=== PATIENT | female | born 1945 | race Caucasian/White ===

== ENCOUNTER → 2019-03-21 | Outpatient (CLI) | payer MEDICARE ==
[~2019-03-21] MED LIST: AMLO5TAB4 PO; DONE5TAB7 PO; DULO60CA7 PO; LEVO25TA4 PO; MELO7.5T5 PO; PREG25CA PO; SERT100T32 PO
== END | disposition home or self-care (01) ==
LOC: STAR 09:53
PROVIDERS: ATTEND Obstetrics & Gynecology Female Pelvic Medicine and Reconstructive Surgery
DX: Z01.818 Encounter for other preprocedural examination (principal); N81.2 Incomplete uterovaginal prolapse; N39.3 Stress incontinence (female) (male)
CPT/HCPCS: 93005

== ENCOUNTER 2019-05-10 15:29 | Emergency (ER) | payer MEDICARE ==
[~2019-05-10] VITALS: Ht 167.6 cm; Wt 79.1 kg
[~2019-05-10 15:29] MED LIST changes: +AMLO-150 PO; +DONE5TAB52 PO; +DULO30CA2 PO; +LEVO125T5 PO; +MELO15TA24 PO; +PREG150C PO; +SOLI10TA2 PO; +ZOLP-413 PO
[2019-05-10 15:35] VITALS: BP 164/66
--- NOTE | 2019-05-10 17:00 | NUR ---
construction pit worker: Pt to ED room 04 from lobby at this time
--- NOTE | 2019-05-10 17:10 | NUR ---
PT CURRENTLY IN XRAY. FAMILY SITTING AT BEDSIDE.
--- NOTE | 2019-05-10 17:21 | NUR ---
PT'S DAUGHTER HELPED MOTHER TO THE BATHROOM VIA WC.
[2019-05-10] MEDS ORDERED: MORPHINE SULFATE 4 MG/ML, 1ML ONE (17:44)
[2019-05-10] MEDS ORDERED: DIAZEPAM 5 MG/ML, 2ML ONE (17:44)
[2019-05-10] MEDS ORDERED: KETOROLAC 30 MG/1 ML ONE (17:44)
[2019-05-10] MEDS ORDERED: MORPHINE SULFATE 4 MG/ML, 1ML IVPush PRN (18:00)
[2019-05-10] MEDS ORDERED: DIAZEPAM 5 MG TABLET PO ONE (18:00)
[2019-05-10] MEDS ORDERED: KETOROLAC 30 MG/1 ML IVPush ONE (18:00)
[2019-05-10] MEDS ORDERED: DIAZEPAM 5 MG/ML, 2ML IVPush ONE (18:30)
--- NOTE | 2019-05-10 18:33 | NUR ---
PT DISCHARGED HOME IN A STABLE CONDITION. PIV WAS REMOVED WITH TIP INTACT. DC INSTRUCTIONS WERE DISCUSSED WITH PT AND DAUGHTER. PT AND DAUGHTER VERBALIZED UNDERSTANDING. NO FURTHER QUESTIONS OR CONCERNS WERE EXPRESSD AT THAT TIME. PT TO BE WHEELED OUT TO DAUGHTER CAR VIA WC.
[2019-05-10] MEDS ORDERED: SODIUM CHLORIDE FLUSH 10ML SYR IVF ONE (19:00)
== END 2019-05-10 18:35 | disposition home or self-care (01) ==
LOC: ED 18:09
DX: G89.29 Other chronic pain (principal); M54.6 Pain in thoracic spine
CPT/HCPCS: 72072; 72125; 96374; 96375; 99284; J1885; J2270; J3360

== ENCOUNTER 2019-09-16 16:09 | Observation (INO) | payer MEDICARE ==
[~2019-09-16] VITALS: Ht 168.9 cm; Wt 75.8 kg
--- NOTE | 2019-09-16 17:10 | NUR ---
Pt has co of diarrhea since yesterday am, described at "coffee grounds". last episode of diarrhea 2 hours ago. pt has sob of w exertion, denies cp, no vomiting. episodes of nausea. pt not in resp distress. state "i feel weak and crappy for 2 weeks".
[2019-09-16] MEDS ORDERED: PANTOPRAZOLE 80 MG in SODIUM CHLORIDE 0.9% 50 ML IVPB ONE (18:00)
[2019-09-16] MEDS ORDERED: ONDANSETRON 2MG/ML, 2ML IVPush ONE (18:00)
[2019-09-16] MEDS ORDERED: SODIUM CHLORIDE FLUSH 10ML SYR IVF ONE (18:00)
[2019-09-16] MEDS ORDERED: PANTOPRAZOLE 80 MG in SODIUM CHLORIDE 0.9% 100 ML IV SCH (18:00)
[2019-09-16] MEDS ORDERED: ONDANSETRON 2MG/ML, 2ML ONE (18:18)
[2019-09-16] MEDS ORDERED: MORPHINE SULFATE 4 MG/ML, 1ML ONE ×2 (18:19→20:08)
[2019-09-16 18:28] LABS: BASOPHILS # (AUTO) 0.01 x10^3/uL (0-0.1); BASOPHILS % (AUTO) 0 % (0-1); EOSINOPHILS # (AUTO) 0.04 x10^3/uL (0-0.4); EOSINOPHILS % (AUTO) 1 % (1-7); LYMPHOCYTES # (AUTO) 1.28 x10^3/uL (1-3.4); LYMPHOCYTES % (AUTO) 31 % (22-44); MD NO; MEAN CORPUSCULAR HEMOGLOBIN 27.1 pg (27.0-34.8); MEAN CORPUSCULAR HGB CONC 32.9 g/dL (32.4-35.8); MEAN CORPUSCULAR VOLUME 82.2 fL (80-100); MEAN PLATELET VOLUME 8.2 fL (7.4-10.4); MONOCYTES # (AUTO) 0.28 x10^3/uL (0.2-0.8); MONOCYTES % (AUTO) 7 % (2-9); NEUTROPHILS # (AUTO) 2.56 x10^3/uL (1.8-6.8); NEUTROPHILS % (AUTO) 62 % (42-75); PLATELET COUNT 162 x10^3/uL (130-400); RED BLOOD COUNT 5.36 x10^6/uL (3.82-5.3); RED CELL DISTRIBUTION WIDTH 14.8 % (9.6-15.2)
[2019-09-16 18:32] LABS: INTERNATIONAL NORMALIZED RATIO 0.99 (0.93-1.1); PROTHROMBIN TIME 10.5 Seconds (9.6-11.5)
[2019-09-16 18:33] LABS: ALANINE AMINOTRANSFERASE 30 U/L (12-78); ALBUMIN 3.7 g/dL (3.4-5.0); ANION GAP 6 mmol/L (5-15); CALCIUM 9.3 mg/dL (8.5-10.1); CHLORIDE 112 mmol/L (98-107)
[2019-09-16 18:35] LABS: ALKALINE PHOSPHATASE 101 U/L (45-117); BILIRUBIN,TOTAL 0.5 mg/dL (0.2-1.0); TOTAL PROTEIN 7.1 g/dL (6.4-8.2)
[2019-09-16] MEDS: MORPHINE SULFATE 4 MG/ML, 1ML IVPush PRN ×2 (18:41→20:10)
--- NOTE | 2019-09-16 18:45 | NUR ---
medicated per orders.
--- NOTE | 2019-09-16 18:53 | NUR ---
report to gabby
--- NOTE | 2019-09-16 20:21 | NUR ---
Dr. Nichols spoke with patient. Admin Morphine per mar for back pain.
[2019-09-16] MEDS ORDERED: PANTOPRAZOLE 40 MG IV IVPush SCH (21:00)
[2019-09-16] MEDS ORDERED: MELO7.5T5 PO (21:05)
[2019-09-16] MEDS ORDERED: SERT25TA3 PO (21:05)
[2019-09-16] MEDS: DIPHENHYDRAMINE 25 MG CAPSULE PO PRN (22:56)
[2019-09-16] MEDS: morphine SULFATE 10 MG/ML, 1ML IVPush PRN (23:49)
[2019-09-16] MEDS: ONDANSETRON 2MG/ML, 2ML IVPush PRN (23:50)
[2019-09-17] VITALS (8 sets, daily range): BP systolic 125–196; BP diastolic 67–87
[2019-09-17] MEDS: morphine SULFATE 10 MG/ML, 1ML IVPush PRN ×4 (00:09→18:32)
[2019-09-17] MEDS: SODIUM CHLORIDE 0.9% 1,000 ML IV SCH ×2 (02:25→10:29)
[2019-09-17 06:08] LABS: ANION GAP 10 mmol/L (5-15); CALCIUM 8.8 mg/dL (8.5-10.1); CHLORIDE 113 mmol/L (98-107); CREATININE 0.87 mg/dL (0.55-1.02)
[2019-09-17] MEDS: PANTOPRAZOLE 40 MG IV IVPush SCH ×2 (06:08→18:31)
[2019-09-17 07:00] LABS: BASOPHILS # (AUTO) 0.02 x10^3/uL (0-0.1); BASOPHILS % (AUTO) 1 % (0-1); EOSINOPHILS # (AUTO) 0.03 x10^3/uL (0-0.4); EOSINOPHILS % (AUTO) 1 % (1-7); LYMPHOCYTES # (AUTO) 1.27 x10^3/uL (1-3.4); LYMPHOCYTES % (AUTO) 35 % (22-44); MD NO; MEAN CORPUSCULAR HEMOGLOBIN 27.1 pg (27.0-34.8); MEAN CORPUSCULAR HGB CONC 32.7 g/dL (32.4-35.8); MEAN CORPUSCULAR VOLUME 83.1 fL (80-100); MEAN PLATELET VOLUME 7.8 fL (7.4-10.4); MONOCYTES % (AUTO) 8 % (2-9); NEUTROPHILS # (AUTO) 2.05 x10^3/uL (1.8-6.8); NEUTROPHILS % (AUTO) 56 % (42-75); PLATELET COUNT 149 x10^3/uL (130-400); RED CELL DISTRIBUTION WIDTH 14.8 % (9.6-15.2)
[2019-09-17] MEDS: ONDANSETRON 2MG/ML, 2ML IVPush PRN ×2 (10:29→18:31)
[2019-09-17] MEDS ORDERED: hydrALAzine 20 MG/ML, 1ML IV ONE (11:00)
[2019-09-17] MEDS: ALUMINUM/MAG/SIMETHICONE 30 ML UDC PO PRN ×3 (11:16→21:21)
[2019-09-17] MEDS ORDERED: DIAZ5TAB4 PO (18:40)
[2019-09-17] MEDS ORDERED: DIAZEPAM 5 MG/ML, 2ML IV PRN (19:00)
[2019-09-17] MEDS ORDERED: LIDODERM 5% PATCH TD SCH (19:00)
[2019-09-17] MEDS ORDERED: DIAZEPAM 5 MG TABLET PO PRN (19:30)
[2019-09-17] MEDS ORDERED: hydrALAzine 20 MG/ML, 1ML IV PRN (21:00)
[2019-09-17] MEDS: DIPHENHYDRAMINE 25 MG CAPSULE PO PRN (22:05)
[2019-09-17] MEDS ORDERED: LORazepam 2 MG/ML, 1ML IVPush ONE (23:30)
[2019-09-18 01:40] VITALS: BP 158/79
[2019-09-18 04:52] LABS: CLOSTRIDIUM DIFFICILE ANTIGEN NEGATIVE; CLOSTRIDIUM DIFFICILE TOXIN NEGATIVE (Negative)
[2019-09-18 05:59] VITALS: BP 160/78
[2019-09-18] MEDS: PANTOPRAZOLE 40 MG IV IVPush SCH (06:00)
[2019-09-18] MEDS ORDERED: LEVOTHYROXINE 125 MCG TABLET PO SCH (06:00)
[2019-09-18] MEDS ORDERED: SODIUM CHLORIDE 0.9% 1,000 ML IV SCH (06:30)
[2019-09-18] MEDS ORDERED: LIDODERM REMOVE PATCH NOTE XX SCH (07:00)
[2019-09-18 07:06] VITALS: BP 156/79
[2019-09-18 07:13] LABS: BASOPHILS # (AUTO) 0.02 x10^3/uL (0-0.1); BASOPHILS % (AUTO) 0 % (0-1); EOSINOPHILS # (AUTO) 0.06 x10^3/uL (0-0.4); EOSINOPHILS % (AUTO) 1 % (1-7); LYMPHOCYTES % (AUTO) 29 % (22-44); MD NO; MEAN CORPUSCULAR HEMOGLOBIN 27.6 pg (27.0-34.8); MEAN CORPUSCULAR HGB CONC 33.1 g/dL (32.4-35.8); MEAN CORPUSCULAR VOLUME 83.4 fL (80-100); MEAN PLATELET VOLUME 7.5 fL (7.4-10.4); MONOCYTES # (AUTO) 0.37 x10^3/uL (0.2-0.8); MONOCYTES % (AUTO) 6 % (2-9); NEUTROPHILS # (AUTO) 3.71 x10^3/uL (1.8-6.8); NEUTROPHILS % (AUTO) 63 % (42-75); PLATELET COUNT 164 x10^3/uL (130-400); RED BLOOD COUNT 5.47 x10^6/uL (3.82-5.3); RED CELL DISTRIBUTION WIDTH 14.6 % (9.6-15.2)
[2019-09-18] MEDS ORDERED: CHLORHEXIDINE 15 ML UDC ONE (07:43)
[2019-09-18] MEDS ORDERED: PROPOFOL 10 MG/ML, 20ML ONE ×2 (07:54→08:33)
[2019-09-18] MEDS ORDERED: FENTANYL PF 100 MCG/2ML ONE (08:04)
[2019-09-18] MEDS ORDERED: ROCURONIUM 10MG/ML,5ML ONE (08:33)
[2019-09-18] MEDS ORDERED: DEXAMETHASONE 4 MG/ML, 1ML ONE (08:33)
[2019-09-18] MEDS ORDERED: GLYCOPYRROLATE 0.2MG/1ML, 5ML ONE (08:33)
[2019-09-18] MEDS ORDERED: ONDANSETRON 2MG/ML, 2ML ONE (08:33)
[2019-09-18] MEDS ORDERED: ESMOLOL 100 MG/10 ML ONE (08:33)
[2019-09-18] MEDS ORDERED: NEOSTIGMINE 1 MG/ML, 10ML ONE (08:33)
[2019-09-18] MEDS ORDERED: SUCCINYLCHOLINE 20 MG/ML, 10ML ONE (08:33)
[2019-09-18] MEDS ORDERED: CEFAZOLIN 1,000 MG ONE (08:33)
[2019-09-18] MEDS ORDERED: METOCLOPRAMIDE 5 MG/ML, 2ML ONE (08:57)
[2019-09-18] MEDS ORDERED: OMEPRAZOLE 20 MG CAPSULE.DR PO SCH (09:00)
[2019-09-18] MEDS ORDERED: PREGABALIN 150 MG CAPSULE PO SCH (09:00)
[2019-09-18] MEDS ORDERED: LISINOPRIL 10 MG TABLET PO SCH (09:00)
[2019-09-18] MEDS ORDERED: METOCLOPRAMIDE 5 MG/ML, 2ML IVPush ONE (09:00)
[2019-09-18] MEDS ORDERED: AMLODIPINE 10 MG TAB PO SCH (09:00)
[2019-09-18] MEDS ORDERED: ACETAMINOPHEN 650 MG/20.3 ML UDC ONE (09:05)
[2019-09-18] MEDS ORDERED: ACETAMINOPHEN 325 MG TABLET PO PRN (09:30)
[2019-09-18] MEDS ORDERED: METOCLOPRAMIDE 5 MG/ML, 2ML IVPush PRN (10:30)
[2019-09-18] MEDS ORDERED: SUCRALFATE 1 GM/10 ML UDC PO SCH (11:00)
[2019-09-18 13:31] VITALS: BP 122/72
[2019-09-18] MEDS ORDERED: OMEP-110 PO (13:54)
[2019-09-18] MEDS ORDERED: METO10TA2 PO (13:54)
[2019-09-18] MEDS ORDERED: DONEPEZIL 5 MG TABLET PO SCH (21:00)
== END 2019-09-18 17:10 | disposition home or self-care (01) ==
LOC: ED 19:24 → INTOOBSV 20:08 → EDIP 20:08 → 3N 21:28
PROVIDERS: ADMIT Internal Medicine; ATTEND Hospitalist
DX: Z03.818 Encounter for observation for suspected exposure to other biological agents ruled out (principal); K92.1 Melena; K29.01 Acute gastritis with bleeding; M79.7 Fibromyalgia; F03.90 Unspecified dementia, unspecified severity, without behavioral disturbance, psychotic disturbance, mood disturbance, and anxiety; E03.9 Hypothyroidism, unspecified; K31.89 Other diseases of stomach and duodenum; R19.7 Diarrhea, unspecified; G89.29 Other chronic pain; M19.90 Unspecified osteoarthritis, unspecified site; I10 Essential (primary) hypertension; Z79.1 Long term (current) use of non-steroidal anti-inflammatories (NSAID); Z79.899 Other long term (current) drug therapy; Z88.8 Allergy status to other drugs, medicaments and biological substances; Z85.828 Personal history of other malignant neoplasm of skin; Z90.710 Acquired absence of both cervix and uterus; Z88.0 Allergy status to penicillin
CPT/HCPCS: 36415; 43239; 71045; 80048; 80053; 83690; 85025; 85610; 85730; 86850; 86900; 87324; 87635; 88305; 88342; 93005; 96361; 96365; 96366; 96375; 96376; 99285; C9113; G0378; J0330; J0360; J2060; J2270; J2405; J2704; J2765; J3010; J7030; Q0163; 96374; J0690; J1100; J2710

== ENCOUNTER 2020-03-03 12:16 | Inpatient (IN) | payer MEDICARE ==
[~2020-03-03] VITALS: Ht 167.6 cm; Wt 75.4 kg
[2020-03-03] MEDS: LIDODERM REMOVE PATCH NOTE XX SCH (05:30)
[~2020-03-03 12:16] MED LIST changes: +DIAZ5TAB4 PO; +LIDO700A20 TD; +METH4TAB2 PO; +METO10TA2 PO; +OMEP-110 PO; +SERT25TA3 PO
[2020-03-03] MEDS ORDERED: SODIUM CHLORIDE 0.9% 1,000 ML IV ONE (13:30)
[2020-03-03] MEDS ORDERED: SODIUM CHLORIDE FLUSH 10ML SYR IVF ONE (13:30)
[2020-03-03] MEDS ORDERED: PLEASE ENTER HEIGHT AND WEIGHT MC SCH (13:30)
--- NOTE | 2020-03-03 13:54 | NUR ---
RECORDS ADMINISTRATOR: PT TO ROOM VIA SILVERIO JULIEN AT THIS TIME
[2020-03-03 14:08] LABS: BASOPHILS % (AUTO) 1 % (0-1); EOSINOPHILS % (AUTO) 1 % (1-7); LYMPHOCYTES % (AUTO) 20 % (22-44); MEAN CORPUSCULAR HEMOGLOBIN 27.2 pg (27.0-34.8); MEAN CORPUSCULAR HGB CONC 33.3 g/dL (32.4-35.8); MEAN PLATELET VOLUME 7.7 fL (7.4-10.4); MONOCYTES % (AUTO) 9 % (2-9); NEUTROPHILS % (AUTO) 70 % (42-75); PLATELET COUNT 182 x10^3/uL (130-400); RED BLOOD COUNT 5.08 x10^6/uL (3.82-5.3); RED CELL DISTRIBUTION WIDTH 14.6 % (9.6-15.2)
[2020-03-03 14:13] LABS: ALANINE AMINOTRANSFERASE 24 U/L (12-78); ALBUMIN 3.4 g/dL (3.4-5.0); ANION GAP 2 mmol/L (5-15); CALCIUM 9.1 mg/dL (8.5-10.1); CHLORIDE 111 mmol/L (98-107); CREATININE 0.95 mg/dL (0.55-1.02)
[2020-03-03 14:15] LABS: ALKALINE PHOSPHATASE 121 U/L (45-117); BILIRUBIN,TOTAL 0.5 mg/dL (0.2-1.0)
[2020-03-03 14:37] LABS: MD NO
[2020-03-03 15:30] LABS: MICROSCOPIC NOT IND
--- NOTE | 2020-03-03 15:31 | NUR ---
BREAK RN: PATIENT RESTING COMFORTABLY WITH DAUGHTER AT BEDSIDE. NO NEEDS AT THIS TIME. VSS
--- NOTE | 2020-03-03 17:20 | NUR ---
daughter returned to er to visit. at this time daughter states that her sister divulged the fact that pt has been taking to much ambien and wants to "end it". daughter brought to room with dr shelton and dr abel at bedside.
[2020-03-03] MEDS ORDERED: PHENAZOPYRIDINE 100 MG TABLET PO PRN (17:30)
[2020-03-03] MEDS ORDERED: DOCUSATE 100 MG CAPSULE PO PRN (17:30)
[2020-03-03] MEDS ORDERED: hydrALAzine 20 MG/ML, 1ML IVPush PRN (17:30)
[2020-03-03] MEDS ORDERED: QUETIAPINE 25MG TABLET PO PRN (17:30)
[2020-03-03] MEDS ORDERED: ACETAMINOPHEN 325 MG TABLET PO PRN (17:30)
[2020-03-03 18:03] LABS: FREE T4 (FREE THYROXINE) 1.09 ng/dL (0.76-1.46)
[2020-03-03] MEDS ORDERED: LIDODERM 5% PATCH TD ONE (18:36)
[2020-03-03] MEDS ORDERED: ENOXAPARIN 40 MG/0.4 ML ONE (18:36)
[2020-03-03] MEDS: ENOXAPARIN 40 MG/0.4 ML SQ SCH (19:00)
[2020-03-03] MEDS: LIDODERM 5% PATCH TD SCH (19:00)
[2020-03-03 22:01] VITALS: BP 155/83
[2020-03-03] MEDS: SODIUM CHLORIDE FLUSH 10ML SYR IVF SCH (22:30)
[2020-03-03] MEDS: DONEPEZIL 5 MG TABLET PO SCH (23:12)
[2020-03-04 04:55] LABS: BASOPHILS % (AUTO) 0 % (0-1); EOSINOPHILS % (AUTO) 1 % (1-7); LYMPHOCYTES % (AUTO) 33 % (22-44); MEAN CORPUSCULAR HEMOGLOBIN 27.2 pg (27.0-34.8); MEAN CORPUSCULAR HGB CONC 33.3 g/dL (32.4-35.8); MEAN PLATELET VOLUME 7.8 fL (7.4-10.4); MONOCYTES % (AUTO) 12 % (2-9); NEUTROPHILS % (AUTO) 54 % (42-75); PLATELET COUNT 168 x10^3/uL (130-400); RED BLOOD COUNT 4.85 x10^6/uL (3.82-5.3); RED CELL DISTRIBUTION WIDTH 14.3 % (9.6-15.2)
[2020-03-04 05:06] LABS: ANION GAP 10 mmol/L (5-15); CALCIUM 8.6 mg/dL (8.5-10.1); CHLORIDE 112 mmol/L (98-107)
[2020-03-04 05:10] LABS: MD NO
[2020-03-04 05:15] VITALS: BP 152/79
[2020-03-04] MEDS: LIDODERM REMOVE PATCH NOTE XX SCH (05:30)
[2020-03-04] MEDS: LEVOTHYROXINE 125 MCG TABLET PO SCH (06:43)
[2020-03-04 06:46] VITALS: BP 161/80
[2020-03-04] MEDS: SOLIFENACIN SUCCINATE 10 MG HOMEMEDPO SCH (09:00)
[2020-03-04] MEDS ORDERED: POTASSIUM CHLORIDE 20 MEQ TAB.ER.PRT PO ONE (09:00)
[2020-03-04] MEDS: SODIUM CHLORIDE FLUSH 10ML SYR IVF SCH ×2 (09:41→21:00)
[2020-03-04] MEDS: DULOXETINE 30 MG CAPSULE.DR PO SCH (09:41)
[2020-03-04] MEDS: AMLODIPINE 10 MG TAB PO SCH (09:41)
[2020-03-04] MEDS: ACETAMINOPHEN 325 MG TABLET PO PRN (09:41)
[2020-03-04] MEDS: PREGABALIN 75 MG CAPSULE PO SCH (09:41)
[2020-03-04 12:05] VITALS: BP 137/77
[2020-03-04] MEDS: ONDANSETRON 2MG/ML, 2ML IVPush PRN ×2 (12:28→18:42)
[2020-03-04] MEDS: ENOXAPARIN 40 MG/0.4 ML SQ SCH (17:30)
[2020-03-04] MEDS: LIDODERM 5% PATCH TD SCH (18:18)
[2020-03-04 19:20] VITALS: BP 134/74
[2020-03-04] MEDS: DONEPEZIL 5 MG TABLET PO SCH (20:22)
[2020-03-04] MEDS: MELATONIN 5 MG TABLET PO PRN (22:06)
[2020-03-05] MEDS: ONDANSETRON 2MG/ML, 2ML IVPush PRN ×2 (00:46→11:09)
[2020-03-05] MEDS: ACETAMINOPHEN 325 MG TABLET PO PRN (00:46)
[2020-03-05 03:02] VITALS: BP 157/74
[2020-03-05] MEDS: LIDODERM REMOVE PATCH NOTE XX SCH (05:30)
[2020-03-05] MEDS: LEVOTHYROXINE 125 MCG TABLET PO SCH (05:46)
[2020-03-05 06:15] LABS: ANION GAP 8 mmol/L (5-15); CALCIUM 9.1 mg/dL (8.5-10.1); CHLORIDE 111 mmol/L (98-107)
[2020-03-05 06:17] LABS: CREATININE 0.82 mg/dL (0.55-1.02)
[2020-03-05 07:37] VITALS: BP 157/91
[2020-03-05] MEDS: SOLIFENACIN SUCCINATE 10 MG HOMEMEDPO SCH (09:00)
[2020-03-05] MEDS: DULOXETINE 30 MG CAPSULE.DR PO SCH (11:10)
[2020-03-05] MEDS: PREGABALIN 75 MG CAPSULE PO SCH (11:10)
[2020-03-05] MEDS: SODIUM CHLORIDE FLUSH 10ML SYR IVF SCH ×2 (11:10→21:10)
[2020-03-05] MEDS: AMLODIPINE 10 MG TAB PO SCH (11:10)
[2020-03-05 13:36] VITALS: BP 148/76
[2020-03-05] MEDS: ENOXAPARIN 40 MG/0.4 ML SQ SCH (18:20)
[2020-03-05] MEDS: LIDODERM 5% PATCH TD SCH (18:21)
[2020-03-05 19:50] VITALS: BP 124/75
[2020-03-05] MEDS: DONEPEZIL 5 MG TABLET PO SCH (21:09)
[2020-03-05] MEDS: MELATONIN 5 MG TABLET PO PRN (21:20)
== END 2020-03-05 21:28 | DRG 917 ==
LOC: ED 14:35 → EDIP 16:07 → INTOOBSV 16:07 → 3N 21:57 → OBSVTOIN 03-05 09:44
PROVIDERS: ADMIT Family Medicine; ATTEND Internal Medicine
PROC: 0T9B30Z Drainage of Bladder with Drainage Device, Percutaneous Approach (ICD-10-PCS; principal; 2020-03-05)
DX: T42.6X1A Poisoning by other antiepileptic and sedative-hypnotic drugs, accidental (unintentional), initial encounter (principal); G92 Toxic encephalopathy; F33.2 Major depressive disorder, recurrent severe without psychotic features; R45.851 Suicidal ideations; Z20.828 Contact with and (suspected) exposure to other viral communicable diseases; I10 Essential (primary) hypertension; E03.9 Hypothyroidism, unspecified; F03.90 Unspecified dementia, unspecified severity, without behavioral disturbance, psychotic disturbance, mood disturbance, and anxiety; F41.9 Anxiety disorder, unspecified; G47.00 Insomnia, unspecified; I25.10 Atherosclerotic heart disease of native coronary artery without angina pectoris; M06.9 Rheumatoid arthritis, unspecified; M19.90 Unspecified osteoarthritis, unspecified site; M79.7 Fibromyalgia; R29.6 Repeated falls; Z96.641 Presence of right artificial hip joint; Z96.653 Presence of artificial knee joint, bilateral; G89.29 Other chronic pain; K21.9 Gastro-esophageal reflux disease without esophagitis; K29.60 Other gastritis without bleeding; M54.2 Cervicalgia; Z82.49 Family history of ischemic heart disease and other diseases of the circulatory system; Z87.440 Personal history of urinary (tract) infections; Z90.710 Acquired absence of both cervix and uterus; Z98.1 Arthrodesis status; Z88.1 Allergy status to other antibiotic agents; Z98.49 Cataract extraction status, unspecified eye; Z83.3 Family history of diabetes mellitus; Z81.8 Family history of other mental and behavioral disorders; Z79.899 Other long term (current) drug therapy; Z79.891 Long term (current) use of opiate analgesic; Y92.89 Other specified places as the place of occurrence of the external cause
CPT/HCPCS: 36415; 70450; 71045; 72110; 80048; 80053; 81003; 83605; 83735; 84100; 84145; 84439; 84443; 85025; 87040; 87635; 93005; 96372; 96374; 99285; G0378; J1650; J2405; 92523-GN; J7030; Q0177

== ENCOUNTER 2020-05-07 10:23 | Observation (INO) | payer MEDICARE ==
[~2020-05-07] VITALS: Ht 167.6 cm; Wt 78.0 kg
[~2020-05-07 10:23] MED LIST changes: +ATOR20TA37 PO; +DOXE25CA PO; +LEVO125T PO; +LEVO750T6 PO; +OXYB5TAB10 PO; +SERT-331 PO; -SERT25TA3 PO
[2020-05-07] MEDS ORDERED: KETOROLAC 30 MG/1 ML ONE (11:40)
[2020-05-07] MEDS ORDERED: ACETAMINOPHEN 500 MG TABLET ONE (11:40)
--- NOTE | 2020-05-07 11:45 | NUR ---
PT RESTING IN BED VSS.
--- NOTE | 2020-05-07 11:46 | NUR ---
xr at bedside
[2020-05-07] MEDS ORDERED: ACETAMINOPHEN 500 MG TABLET PO ONE (12:00)
[2020-05-07] MEDS ORDERED: KETOROLAC 30 MG/1 ML IVPush ONE (12:00)
[2020-05-07 12:10] LABS: BASOPHILS % (AUTO) 1 % (0-1); EOSINOPHILS % (AUTO) 1 % (1-7); LYMPHOCYTES % (AUTO) 21 % (22-44); MEAN CORPUSCULAR HEMOGLOBIN 26.7 pg (27.0-34.8); MEAN CORPUSCULAR HGB CONC 32.3 g/dL (32.4-35.8); MEAN PLATELET VOLUME 7.8 fL (7.4-10.4); MONOCYTES % (AUTO) 6 % (2-9); NEUTROPHILS % (AUTO) 72 % (42-75); PLATELET COUNT 198 x10^3/uL (130-400); RED CELL DISTRIBUTION WIDTH 14.1 % (9.6-15.2)
[2020-05-07 12:18] LABS: MD NO
[2020-05-07 12:19] LABS: ALBUMIN 3.6 g/dL (3.4-5.0); ANION GAP 4 mmol/L (5-15); CALCIUM 8.6 mg/dL (8.5-10.1); CHLORIDE 111 mmol/L (98-107)
[2020-05-07 12:23] LABS: ALANINE AMINOTRANSFERASE 26 U/L (12-78); ALKALINE PHOSPHATASE 111 U/L (45-117); BILIRUBIN,TOTAL 0.4 mg/dL (0.2-1.0); CREATININE 1.03 mg/dL (0.55-1.02); TOTAL PROTEIN 6.6 g/dL (6.4-8.2)
[2020-05-07] MEDS ORDERED: METHOCARBAMOL 750 MG TABLET PO ONE (12:30)
[2020-05-07] MEDS ORDERED: METHOCARBAMOL 750 MG TABLET ONE (12:38)
[2020-05-07 13:00] LABS: MICROSCOPIC AUTO
--- NOTE | 2020-05-07 14:30 | NUR ---
pt in bed with no signs or symptoms of acute distress noted respirations even and unlabored denies pain or discomfort at this time. satting well on room air. bed rails up bilaterally and call light within reach.
[2020-05-07] MEDS ORDERED: MONT10TA17 PO (15:01)
[2020-05-07] MEDS ORDERED: PANT20TA4 PO (15:02)
[2020-05-07] MEDS ORDERED: LEVO750T6 PO (15:03)
[2020-05-07] MEDS ORDERED: bactrim (15:03)
--- NOTE | 2020-05-07 15:05 | NUR ---
pt in bed with no signs or symptoms of acute distress noted respirations even and unlabored md at bedside to assess
--- NOTE | 2020-05-07 16:32 | NUR ---
pt in bed with no signs or symptoms of acute distress noted respirations even and unlabored satting well on room air. rn x2 in room to move pt from [facility] to hospital bed. pt tolerated procedure well and was able to stand and turn on her own to transfer. pt back in position of comfort with call light within reach and bed rails up bilaterally.
[2020-05-07] MEDS ORDERED: ENOXAPARIN 40 MG/0.4 ML ONE (16:56)
[2020-05-07] MEDS ORDERED: ONDANSETRON ODT 4 MG PO PRN (17:00)
[2020-05-07] MEDS ORDERED: ACETAMINOPHEN 325 MG TABLET PO PRN (17:00)
[2020-05-07] MEDS ORDERED: ONDANSETRON 2MG/ML, 2ML IVPush PRN (17:00)
[2020-05-07] MEDS: ENOXAPARIN 40 MG/0.4 ML SQ SCH (17:04)
[2020-05-07] MEDS: LACTATED RINGERS 1,000 ML IV SCH (17:06)
[2020-05-07] MEDS ORDERED: ACETAMINOPHEN 325 MG TABLET ONE (17:24)
--- NOTE | 2020-05-07 17:53 | NUR ---
pt in bed with no signs or symptoms of acute distress noted respirations even and unlabored pt with dietary tray at bedside. bed rails up bilaterally and call light within reach
--- NOTE | 2020-05-07 18:50 | NUR ---
BREAK RN: PT. RESTING ON HOSPITAL BED WITH NO DISTRESS NOTED. PT. USING CELL PHONE AT THIS TIME. SPO2 MONITOR IN PLACE. CALL LIGHT IN REACH. ALL SAFETY MEASURES OBSERVED.
--- NOTE | 2020-05-07 19:00 | NUR ---
BREAK RN: 1ST ATTEMPT TO CALL REPORT TO FLOOR.
--- NOTE | 2020-05-07 19:16 | NUR ---
2ND ATTEMPT TO CALL REPORT TO FLOOR.
[2020-05-07 20:13] VITALS: BP 120/56
[2020-05-07 20:38] VITALS: BP 120/56
[2020-05-07] MEDS: DONEPEZIL 5 MG TABLET PO SCH (21:13)
[2020-05-07] MEDS: SULFAMETH./TRIMETHOPRIM DS 800MG/160MG TABLET PO SCH (21:13)
[2020-05-07] MEDS: DOXEPIN 25 MG CAPSULE PO SCH (21:13)
[2020-05-08 02:39] VITALS: BP 122/61
[2020-05-08] MEDS: LACTATED RINGERS 1,000 ML IV SCH ×2 (05:20→22:24)
[2020-05-08 08:00] VITALS: BP 133/66
[2020-05-08 08:52] LABS: BASOPHILS % (AUTO) 1 % (0-1); EOSINOPHILS % (AUTO) 1 % (1-7); LYMPHOCYTES % (AUTO) 34 % (22-44); MD NO; MEAN CORPUSCULAR HEMOGLOBIN 26.9 pg (27.0-34.8); MEAN CORPUSCULAR HGB CONC 32.6 g/dL (32.4-35.8); MEAN PLATELET VOLUME 7.7 fL (7.4-10.4); MONOCYTES % (AUTO) 6 % (2-9); NEUTROPHILS % (AUTO) 58 % (42-75); PLATELET COUNT 169 x10^3/uL (130-400); RED BLOOD COUNT 4.83 x10^6/uL (3.82-5.3); RED CELL DISTRIBUTION WIDTH 14.5 % (9.6-15.2)
[2020-05-08 09:01] LABS: ANION GAP 4 mmol/L (5-15); CALCIUM 8.4 mg/dL (8.5-10.1); CHLORIDE 112 mmol/L (98-107); CREATININE 1.03 mg/dL (0.55-1.02)
[2020-05-08] MEDS: PANTOPRAZOLE 20MG TABLET PO SCH (09:10)
[2020-05-08] MEDS: SULFAMETH./TRIMETHOPRIM DS 800MG/160MG TABLET PO SCH ×2 (09:10→22:25)
[2020-05-08] MEDS: AMLODIPINE 5 MG TABLET PO SCH (09:10)
[2020-05-08] MEDS: MONTELUKAST 10 MG TABLET PO SCH (09:10)
[2020-05-08] MEDS: OXYBUTYNIN CHLORIDE 5 MG TABLET PO SCH (09:16)
[2020-05-08 14:37] VITALS: BP 114/53
[2020-05-08] MEDS: ENOXAPARIN 40 MG/0.4 ML SQ SCH (17:00)
[2020-05-08 18:43] LABS: RAPID INFLUENZA A Negative (Negative); RAPID INFLUENZA B Negative (Negative)
[2020-05-08 19:40] VITALS: BP 117/56
[2020-05-08] MEDS ORDERED: OMNIPAQUE 350 MG/ML, 75ML BOTTLE ONE (21:59)
[2020-05-08] MEDS: DOXEPIN 25 MG CAPSULE PO SCH (22:24)
[2020-05-08] MEDS: DONEPEZIL 5 MG TABLET PO SCH (22:24)
[2020-05-08] MEDS ORDERED: MELATONIN 5 MG TABLET PO PRN (23:30)
[2020-05-09 00:41] VITALS: BP 144/72
[2020-05-09 05:08] LABS: BASOPHILS % (AUTO) 1 % (0-1); EOSINOPHILS % (AUTO) 1 % (1-7); LYMPHOCYTES % (AUTO) 40 % (22-44); MEAN CORPUSCULAR HEMOGLOBIN 27.2 pg (27.0-34.8); MEAN CORPUSCULAR HGB CONC 33.1 g/dL (32.4-35.8); MEAN PLATELET VOLUME 7.8 fL (7.4-10.4); MONOCYTES % (AUTO) 7 % (2-9); NEUTROPHILS % (AUTO) 52 % (42-75); PLATELET COUNT 165 x10^3/uL (130-400); RED BLOOD COUNT 4.94 x10^6/uL (3.82-5.3); RED CELL DISTRIBUTION WIDTH 14.4 % (9.6-15.2)
[2020-05-09 05:09] LABS: MD NO
[2020-05-09 05:21] LABS: ANION GAP 5 mmol/L (5-15); CALCIUM 9.1 mg/dL (8.5-10.1); CHLORIDE 111 mmol/L (98-107)
[2020-05-09 05:22] LABS: CREATININE 1.01 mg/dL (0.55-1.02)
[2020-05-09 08:10] VITALS: BP 153/71
[2020-05-09] MEDS: OXYBUTYNIN CHLORIDE 5 MG TABLET PO SCH (08:52)
[2020-05-09] MEDS: PANTOPRAZOLE 20MG TABLET PO SCH (08:52)
[2020-05-09] MEDS: SULFAMETH./TRIMETHOPRIM DS 800MG/160MG TABLET PO SCH (08:52)
[2020-05-09] MEDS: MONTELUKAST 10 MG TABLET PO SCH (08:52)
[2020-05-09] MEDS: AMLODIPINE 5 MG TABLET PO SCH (08:52)
[2020-05-09] MEDS: LACTATED RINGERS 1,000 ML IV SCH (09:00)
[2020-05-09 12:13] VITALS: BP 127/63
== END 2020-05-09 17:36 | disposition home or self-care (01) ==
LOC: SUATTDRO 12:48 → ED 13:09 → EDIP 13:30 → INTOOBSV 13:30 → 3N 20:02
PROVIDERS: ADMIT Internal Medicine; ATTEND Internal Medicine
DX: R53.1 Weakness (principal); E86.0 Dehydration; E78.5 Hyperlipidemia, unspecified; G89.29 Other chronic pain; M54.9 Dorsalgia, unspecified; M79.7 Fibromyalgia; I10 Essential (primary) hypertension; K21.9 Gastro-esophageal reflux disease without esophagitis; N39.0 Urinary tract infection, site not specified; M06.9 Rheumatoid arthritis, unspecified; F32.9 Major depressive disorder, single episode, unspecified; Z88.0 Allergy status to penicillin; Z79.899 Other long term (current) drug therapy; Z90.710 Acquired absence of both cervix and uterus; Z20.822 Contact with and (suspected) exposure to COVID-19; Z66 Do not resuscitate; Z87.440 Personal history of urinary (tract) infections
CPT/HCPCS: 36415; 71045; 71275; 80048; 80053; 81001; 85025; 85379; 87086; 87400; 87635; 93005; 96361; 96372; 96374; 99285; G0378; J1650; J1885; J7120; Q9967

== ENCOUNTER 2020-09-03 14:54 | Emergency (ER) | payer MEDICARE ==
[~2020-09-03] VITALS: Ht 167.6 cm; Wt 78.0 kg
[~2020-09-03 14:54] MED LIST changes: +MONT10TA17 PO; +PANT20TA4 PO; +bactrim
--- NOTE | 2020-09-03 15:21 | NUR ---
PT BROUGHT BACK FROM TRIAGE WITH CHIEF COMPLAINT OF FREQUENT URINATION, ANXIETY, AND INABILITY TO SLEEP FOR THREE DAYS.
--- NOTE | 2020-09-03 16:19 | NUR ---
ERMD SAHM AT BEDSIDE FOR EVAL
[2020-09-03] MEDS ORDERED: SODIUM CHLORIDE FLUSH 10ML SYR IVF ONE (16:30)
[2020-09-03 16:49] LABS: BASOPHILS % (AUTO) 1 % (0-1); EOSINOPHILS % (AUTO) 1 % (1-7); LYMPHOCYTES % (AUTO) 24 % (22-44); MEAN CORPUSCULAR HEMOGLOBIN 27.7 pg (27.0-34.8); MEAN CORPUSCULAR HGB CONC 33.5 g/dL (32.4-35.8); MEAN PLATELET VOLUME 7.9 fL (7.4-10.4); MONOCYTES % (AUTO) 7 % (2-9); NEUTROPHILS % (AUTO) 68 % (42-75); PLATELET COUNT 183 x10^3/uL (130-400); RED BLOOD COUNT 5.22 x10^6/uL (3.82-5.3); RED CELL DISTRIBUTION WIDTH 14.2 % (9.6-15.2)
[2020-09-03 16:52] LABS: MD NO
[2020-09-03 16:57] LABS: ALANINE AMINOTRANSFERASE 36 U/L (12-78); ANION GAP 6 mmol/L (5-15); CALCIUM 9.2 mg/dL (8.5-10.1); CHLORIDE 109 mmol/L (98-107); CREATININE 0.81 mg/dL (0.55-1.02)
[2020-09-03 17:00] LABS: ALKALINE PHOSPHATASE 115 U/L (45-117); BILIRUBIN,TOTAL 0.6 mg/dL (0.2-1.0); TOTAL PROTEIN 7.4 g/dL (6.4-8.2)
--- NOTE | 2020-09-03 17:10 | NUR ---
PT IN CT AT THIS TIME
[2020-09-03 17:47] LABS: MICROSCOPIC AUTO
--- NOTE | 2020-09-03 18:02 | NUR ---
KATERINE COLLAZO AT BEDSIDE TO DISCUSS POC
[2020-09-03 18:07] LABS: ACETONE, SERUM Trace (Negative)
[2020-09-03 18:11] VITALS: BP 150/65
== END 2020-09-03 18:44 | disposition home or self-care (01) ==
LOC: ED 15:35
DX: E86.0 Dehydration (principal); R53.1 Weakness; Z76.0 Encounter for issue of repeat prescription; R42 Dizziness and giddiness; I10 Essential (primary) hypertension; M06.9 Rheumatoid arthritis, unspecified; Z90.49 Acquired absence of other specified parts of digestive tract
CPT/HCPCS: 36415; 70450; 71045; 80053; 81001; 82010; 85025; 87086; 93005; 99285

== ENCOUNTER → 2020-09-06 | Outpatient (CLI) | payer MEDICARE | END | disposition home or self-care (01) | LOC: RAD 09:10 | PROVIDERS: ATTEND Nurse Practitioner | DX: R10.84 Generalized abdominal pain (principal); Z90.49 Acquired absence of other specified parts of digestive tract | CPT/HCPCS: 76700 ==

== ENCOUNTER 2020-09-09 17:53 | Emergency (ER) | payer MEDICARE ==
[~2020-09-09] VITALS: Ht 167.6 cm; Wt 76.5 kg
[2020-09-09 17:58] VITALS: BP 136/88
--- NOTE | 2020-09-09 18:17 | NUR ---
ASSUMED CARE OF PATIENT. PATIENT REPORTS SHE HAS HAD LOOSE STOOL X2 DAYS, PT ALSO C/O EXCESSIVE URINATION. PT C/O A HEADACHE. VS STABLE. CALL LIGHT IN PLACE. WILL CONTINUE TO MONITOR.
--- NOTE | 2020-09-09 18:53 | NUR ---
REPORT GIVEN TO PÉREZ UPTON
--- NOTE | 2020-09-09 19:00 | NUR ---
RECEIVED REPORT FROM PÉREZ STOCKTON, PT WAS ABLE TO PROVIDE URINE SAMPLE, UA SENT.
[2020-09-09 19:07] LABS: MICROSCOPIC AUTO
[2020-09-09 19:16] LABS: BASOPHILS % (AUTO) 0 % (0-1); EOSINOPHILS % (AUTO) 1 % (1-7); LYMPHOCYTES % (AUTO) 37 % (22-44); MD NO; MEAN CORPUSCULAR HGB CONC 33.4 g/dL (32.4-35.8); MEAN PLATELET VOLUME 8.1 fL (7.4-10.4); MONOCYTES % (AUTO) 7 % (2-9); NEUTROPHILS % (AUTO) 56 % (42-75); PLATELET COUNT 176 x10^3/uL (130-400); RED BLOOD COUNT 5.16 x10^6/uL (3.82-5.3); RED CELL DISTRIBUTION WIDTH 14.4 % (9.6-15.2)
[2020-09-09 19:26] LABS: ALANINE AMINOTRANSFERASE 32 U/L (12-78); ALBUMIN 3.8 g/dL (3.4-5.0); ANION GAP 9 mmol/L (5-15); CALCIUM 9.4 mg/dL (8.5-10.1); CHLORIDE 112 mmol/L (98-107); CREATININE 0.76 mg/dL (0.55-1.02)
[2020-09-09 19:29] LABS: ALKALINE PHOSPHATASE 99 U/L (45-117); BILIRUBIN,TOTAL 0.6 mg/dL (0.2-1.0); TOTAL PROTEIN 7.1 g/dL (6.4-8.2)
--- NOTE | 2020-09-09 19:40 | NUR ---
PT REQUESTED BATHROOM. ASSISTED PT TO BATHROOM. PT MBULATED WITH A STEADY GAIT. PT HAS NO OTHER NEEDS.
--- NOTE | 2020-09-09 20:00 | NUR ---
PT CALLED AND WANTED TO KNOW WHAT WAS GOING ON. THIS RN ASSURED THE PT THAT WE WERE WAITING ON LABS TO COME BACK AND WILL KNOW A PLAN AFTER THAT. CALL LIGHT WITHIN REACH. PT DENIES ANY NEEDS AT THIS TIME.
[2020-09-09] MEDS ORDERED: PROMETHAZINE 25 MG/ML, 1ML IM ONE (20:30)
[2020-09-09] MEDS ORDERED: PROMETHAZINE 25 MG/ML, 1ML ONE (20:41)
--- NOTE | 2020-09-09 20:45 | NUR ---
PT MEDICATED AND ALLOWED TO EAT, PT RESTING COMFORTABLY ON BED, DENIES NEEDS AT THIS TIME.
--- NOTE | 2020-09-09 21:30 | NUR ---
Pt refused d/c vitals. Patient given discharge instructions and they have confirmed that they understand the instructions. Patient ambulatory with steady gait.
== END 2020-09-09 21:33 | disposition home or self-care (01) ==
LOC: ED 19:09
DX: G43.009 Migraine without aura, not intractable, without status migrainosus (principal); I10 Essential (primary) hypertension; M06.9 Rheumatoid arthritis, unspecified; I48.91 Unspecified atrial fibrillation; E86.0 Dehydration; R19.7 Diarrhea, unspecified; Z90.49 Acquired absence of other specified parts of digestive tract
CPT/HCPCS: 36415; 80053; 81001; 83690; 85025; 87086; 96372; 99283; J2550

== ENCOUNTER 2020-09-17 15:26 | Emergency (ER) | payer MEDICARE ==
[~2020-09-17] VITALS: Ht 167.6 cm; Wt 72.7 kg
--- NOTE | 2020-09-17 15:56 | NUR ---
PER PET SITTER ARELY- PT SOPHIA CLOTHING IS IN LOCKER, GRAND DAUGHTER HAS PTS PURSE AND JEWLERY.
--- NOTE | 2020-09-17 16:00 | NUR ---
PT PRESENTS TO ED FOR SA. OD AMBBIEN 10MG ONE LAST NIGHT AND ONE TODAY, VAILUM 5MG 2-3 TODAY. TOOK MEDS AT 1000 TODAY. PT HAS DEMENTIA. PT STATES THEY FEEL THAT THEIR DEMENTIA HAS GOTTEN "OUT OF HAND". PT PRESENTS ANXIOUS, A&OX4, RESPS EVEN AND UNLABORED, NADN. DAUGHTER AT BEDSIDE.
--- NOTE | 2020-09-17 16:40 | NUR ---
social work lecturer and psych waxer floor at bedside for eval.
[2020-09-17] MEDS ORDERED: MAALOX/HYOSCYAMINE/LIDOCAINE 45 ML BTL PO ONE (17:30)
[2020-09-17 17:32] LABS: BASOPHILS % (AUTO) 1 % (0-1); EOSINOPHILS % (AUTO) 0 % (1-7); LYMPHOCYTES % (AUTO) 28 % (22-44); MEAN CORPUSCULAR HEMOGLOBIN 27.3 pg (27.0-34.8); MEAN CORPUSCULAR HGB CONC 33.2 g/dL (32.4-35.8); MEAN PLATELET VOLUME 7.6 fL (7.4-10.4); MONOCYTES % (AUTO) 5 % (2-9); NEUTROPHILS % (AUTO) 65 % (42-75); PLATELET COUNT 173 x10^3/uL (130-400); RED BLOOD COUNT 5.31 x10^6/uL (3.82-5.3); RED CELL DISTRIBUTION WIDTH 14.3 % (9.6-15.2)
[2020-09-17 17:35] LABS: ALANINE AMINOTRANSFERASE 44 U/L (12-78); ALBUMIN 3.7 g/dL (3.4-5.0); ANION GAP 5 mmol/L (5-15); CHLORIDE 111 mmol/L (98-107); CREATININE 0.72 mg/dL (0.55-1.02)
[2020-09-17 17:38] LABS: ALKALINE PHOSPHATASE 108 U/L (45-117); BILIRUBIN,TOTAL 0.5 mg/dL (0.2-1.0); TOTAL PROTEIN 6.9 g/dL (6.4-8.2)
[2020-09-17] MEDS ORDERED: MAALOX/HYOSCYAMINE/LIDOCAINE 45 ML BTL ONE (17:47)
[2020-09-17 17:53] LABS: SALICYLATE LEVEL < 1.7 mg/dL (2.8-20.0)
[2020-09-17 18:12] LABS: MICROSCOPIC AUTO
--- NOTE | 2020-09-17 18:17 | NUR ---
RAPID COVID SWAB SENT TO LAB
[2020-09-17 18:20] LABS: AMPHETAMINE SCREEN, URINE Negative (Negative); BARBITURATE SCREEN, URINE Negative (Negative); BENZODIAZEPINE SCREEN, URINE Positive (Negative); CANNABINOID SCREEN, URINE Negative (Negative); COCAINE SCREEN, URINE Negative (Negative); METHADONE SCREEN, URINE Negative (Negative); OPIATE SCREEN, URINE Negative (Negative)
--- NOTE | 2020-09-17 18:53 | NUR ---
report given to sergio ferris
[2020-09-17] MEDS ORDERED: FOSFOMYCIN 3 GM PACKET PO ONE (19:00)
--- NOTE | 2020-09-17 19:27 | NUR ---
RECEIEVED REPORT FROM ESTHER ORTEZ. PT GIVEN FOOD AND PILLOW. SAFETY PRECAUTIUONS PUT INTO PLACE. SITTER OUTSIDE ROOM GARAGE DOORS SECURED. PERSONAL BELONGING IN LOCKERS. TYRON
[2020-09-17 20:03] VITALS: BP 157/62
--- NOTE | 2020-09-17 20:04 | NUR ---
Patient is resting comfortably in bed. Bed in lowest, rails engaged, call light on lap. Vital Signs within normal limits. WCTM. same safety precautions put into place.
--- NOTE | 2020-09-17 20:53 | NUR ---
PT CURRENTLY REPORTED TO ME THAT IF SHE HAD A GUN RIGHT NOW SHE WOULD SHOOT HERSELF. GAVE REPORT TO [facility] NURSE RN. ROOM 379-2 PT CONDITION UNCHANGED. SAME SAFETY MEASURE PUT INTO PLACE
[2020-09-17] MEDS ORDERED: FOSFOMYCIN 3 GM PACKET ONE (20:57)
[2020-09-17] MEDS ORDERED: QUETIAPINE 25MG TABLET ONE (20:57)
[2020-09-17] MEDS ORDERED: QUETIAPINE 25MG TABLET PO SCH (21:00)
--- NOTE | 2020-09-17 21:10 | NUR ---
PT TRANSFERRED TO FLOOR VIA WHEELCHAIR. YAIR.
[2020-09-18] MEDS ORDERED: DULOXETINE 30 MG CAPSULE.DR PO SCH (09:00)
[2020-09-18] MEDS ORDERED: LEVO50CA4 PO (10:50)
[2020-09-18] MEDS ORDERED: FURO20TA3 PO (10:52)
[2020-09-18] MEDS ORDERED: PREG150C44 PO (10:54)
[2020-09-18] MEDS ORDERED: ZOLP5TAB PO (10:55)
== END 2020-09-17 21:10 ==
LOC: ED 17:34
DX: F32.9 Major depressive disorder, single episode, unspecified (principal); N30.00 Acute cystitis without hematuria; R94.31 Abnormal electrocardiogram [ECG] [EKG]
CPT/HCPCS: 36415; 80053; 80299; 80307; 80320; 80329; 81001; 85025; 87086; 93005; 99285; G0480